=== PATIENT | male | born 1990 | race Caucasian/White ===

== ENCOUNTER 2019-10-16 23:01 | Emergency (ER) | payer BC, SELFPAY ==
[2019-10-16 23:02] VITALS: BP 120/73; PULSE 62; RESP 18; TEMP 36.8; O2SAT 96; BMI 22.9
--- NOTE | 2019-10-17 00:59 | ED.VIS.GEN ---
History of Present Illness Chief Complaint: Abscess Narrative: Patient is a 28-year-old male who presents with sores on top of his mouth. He has a history of tobacco use there is concern for cancer. The sores are painful. He first noticed them 2 days ago. He does have a history of inflammatory bowel disease. No fevers. No vomiting. No diarrhea. No abdominal pain. Past Medical History - Allergies and Home Meds Allergies/Adverse Reactions: Allergies Fish Containing Products Allergy (Verified 10/16/19 23:05) Other throat tightens, lips swell ciprofloxacin [From Cipro] Adverse Reaction (Verified 10/16/19 23:05) Pain in joints ciprofloxacin HCl [From Cipro] Adverse Reaction (Verified 10/16/19 23:05) Pain in joints Primary Care Physician: Indra Sheriff DO [Primary Care Provider] - Past Medical History: - - Inflammatory bowel disease Surgical History: no surgical history Smoking Status: Never smoker - Family History Maternal Family History: Reports: No pertinent history Review of Systems All systems negative except as indicated General: Denies: Fever ENT: Reports: - - Sores in mouth Cardiovascular: Denies: Chest pain Respiratory: Denies: Dyspnea Gastrointestinal: Denies: Nausea, Vomiting, Diarrhea Skin: Denies: Rash Neurological: Denies: Headache Physical Exam Vital Signs/Narrative: Vital Signs Temp Pulse Resp BP Pulse Ox 10/16/19 23:02 98.3 F 62 18 120/73 96 Inital Vital Signs reviewed: Yes General: Well nourished Head: Normocephalic Eyes: EOMI ENT: - - Aphthous ulcers noticed on the hard palate Neck: Supple Cardiovascular: Regular rate Respiratory: No distress Skin: Normal color Neurological: Alert Psychological: Normal affect Diagnostic/Tx/Re-eval - Medical Decision Making Patient has aphthous ulcers. He was reassured that this does not appear to be cancer but I did recommend follow-up with ENT, especially if his symptoms do not improve. He was given a prescription for Benadryl?Maalox?Xylocaine liquid. Understands to return for new or worsening symptoms and was discharged home. ED Disposition - Plan for ED Patient: Disposition: Home or Assisted Living Diagnosis: Aphthous ulcer Instructions: APHTHOUS ULCER, Canker Sore (Child) Prescriptions: Bmx Liquid 10 ml PO TID #180 ml Prescription Printed Referrals: Indra Sheriff DO [Primary Care Provider] - Tristin Gong MD [STAFF PHYSICIAN] -
[2019-10-17 01:06] VITALS: BP 118/70; PULSE 75; RESP 16; O2SAT 98
== END 2019-10-17 01:07 | disposition home or self-care (01) ==
PROVIDERS: Emergency Provider Emergency Medicine; Family Provider Family Medicine; PCP Family Medicine
DX: K12.0 Recurrent oral aphthae (principal); Z87.891 Personal history of nicotine dependence
CPT/HCPCS: 99282

== ENCOUNTER 2020-01-26 02:21 | Emergency (ER) | payer BC, SELFPAY ==
[2020-01-26 02:22] VITALS: BP 142/90; PULSE 76; RESP 18; TEMP 36.6; O2SAT 98; BMI 23.6
--- NOTE | 2020-01-26 02:31 | EKG12_ITS ---
Test Reason : SOB Blood Pressure : / mmHG Vent. Rate : 065 BPM Atrial Rate : 065 BPM P-R Int : 138 ms QRS Dur : 074 ms QT Int : 394 ms P-R-T Axes : 064 008 043 degrees QTc Int : 409 ms Normal sinus rhythm with sinus arrhythmia Normal ECG Confirmed by MARIA URBINA, MARIE ([id number]), film and video editor CRISTOPHER GARY ([id number]) on 01/27/2020 8:27:37 AM Referred By: ANAHI Confirmed By:MARIE SIFUENTES MD
[2020-01-26] MEDS: Ipratropium/Albuterol Sulfate 3 ML AMPUL.NEB INHALATION (02:47)
[2020-01-26 02:48] VITALS: PULSE 70; RESP 16
[2020-01-26 02:48] LABS: Absolute Lymphocyte Count 2.02 X10^3/uL (0.83-4.51); Absolute Neutrophil Count 11.2 X10^3/uL (2.0-7.7); Basophil# 0.02 X10^3/uL; Basophil% 0.1 % (0-1); Eosinophil# 0.01 X10^3/uL; Eosinophils% 0.1 % (0-5); Hematocrit 42.2 % (40-54); Hemoglobin 14.1 g/dL (13.0-16.5); Lymphocyte # 2.02 X10^3/ul (4.0); Lymphocyte % 14.1 % (19-41); Mean Corp Hgb Conc 33.4 g/dL (32-36); Mean Corpuscular Hgb 30.5 pg (27.0-32.0); Mean Corpuscular Volume 91.1 fL (80-94); Mean Platelet Vol. 10.9 fl (6.2-12.0); Monocyte# 1.01 X10^3/uL; NRBC Flagged by Analyzer 0 % (0-5); Neutrophil # 11.23 X10^3/uL (2.7-7.7); Neutrophil % 78.4 % (47-70); Platelet Count 301 K/mm3 (150-450); RBC Distribution Width CV 11.9 % (11.6-14.6); RBC Distribution Width SD 39.3 fl (35.1-43.9); Red Blood Count 4.63 M/mm3 (4.6-6.2); White Blood Count 14.3 K/mm3 (4.4-11.0)
[2020-01-26 03:36] LABS: D-Dimer Quantitative (DVT/PE) < 0.27 FEU/ug/m (0.27-0.49)
--- NOTE | 2020-01-26 03:37 | RAD_ITS ---
STUDY: X-RAY CHEST REASON FOR EXAM: Male, 29 years old. c/o sob x 3 days -- mid sternal cp starting yesterday -- hx of asthma TECHNIQUE: Frontal and lateral views of the chest. COMPARISON: 09/25/2014 FINDINGS: The lungs are clear and expanded. There is no demonstrated pleural abnormality. Normal size heart. Normal mediastinum and mariella. Normal visualized pulmonary arteries. Normal visualized aortic arch and descending thoracic aorta. Normal visualized thoracic spine. Normal visualized ribs, clavicles, and shoulders. There is no demonstrated abnormality of the visualized soft tissue structures of the upper abdomen. RAD/Chest PA and Lateral IMPRESSION: Normal x-ray examination of the chest. Electronically Signed: Nacho Richards MD at 3:55 EDT Tel , Service support ,
--- NOTE | 2020-01-26 03:37 | ED.DCSUM_ITS ---
- ER Visit Summary Date of Service: 01/26/20 Chief Complaint: [Shortness of breath and chest pain] History of Present Illness: The patient is a 29 M [[place]ent[place] to the emergency department with complaint of some shortness of breath over the last 5 days. Patient states that he felt like his asthma was acting up. Patient was seen by his primary care physician 2 days ago and started on Advair as well as prednisone. Over the last 8 hours he is developed pain in the center of his chest that sharp and worse with breathing. Patient also has a pressure sensation over the chest. He denies recent travel or surgery. He denies any exposure to novel coronavirus. Patient denies any fevers. He has no cough. De nies sore throat or headache. Has had no vomiting or diarrhea. Patient has history of asthma and history of ulcerative colitis.] Physical Examination: [HEENT-PERRLA, EOMI. Cranial nerves II through XII grossly intact. TMs clear. Mucous membranes moist. No adenopathy. Cardiovascular-regular rate and rhythm without murmur or ectopy Lungs-clear to auscultation, chest wall stable without crepitus or subcu emphysema Abdomen-normoactive bowel sounds, soft, nontender, no rebound or rigidity, no peritoneal signs. Extremities-intact ?4, normal range of motion, normal pulses, atraumatic] Test Results: [EKG obtained arrival shows sinus rhythm with a ventricular rate of 65 bpm with no acute segment changes. D-dimer was normal.] Chest x-ray obtained was normal. Emergency Department Course and Treatment: [Results discussed with patient. I had a long discussion with the patient. Patient believes some of his symptoms may be due to anxiety because he is been quite stressed over the coronavirus epidemic and the fact that he is got a history of colitis and asthma. At this time patient really not exhibiting a lot of signs or symptoms of coronavirus however I did explain to them that the symptoms can be minimal to asymptomatic. He is advised to self quarantine for 14 days.] He understands about the lack of testing at this time for minimally symptomatic patients. Treatment Plan: [Follow up with primary care physician 10 to 14 days. Patient will be given a prescription for Ativan as needed for anxiety.] Disposition: [Discharged home in stable condition.] Impression: [Dyspnea Chest pain-etiology uncertain Anxiety] This note was generated with Dragon dictation software. It may contain incorrect words, spelling, and punctuation that were not noted in review of the chart prior to signing ED Disposition - Plan for ED Patient: Referrals: Indra Sheriff DO [Primary Care Provider] -
[2020-01-26 03:50] LABS: Anion Gap 8 (5-15); BUN 18 mg/dL (7-18); BUN/Creat Ratio 15.4 RATIO (10-20); Calcium,Total 8.9 mg/dL (8.5-10.1); Chloride 103 mmol/L (98-107); Creatinine, Serum 1.17 mg/dL (0.70-1.30); EST Glomerular Filtration Rate 77 mL/min (>60); Est Glom Filt Rate - Afr Amer 93 mL/min (>60); Estimated Creatinine Clearance 94.46 ml/min; Glucose 103 mg/dL (74-106); Potassium 4.1 mmol/L (3.5-5.1); Sodium Level 137 mmol/L (136-145)
--- NOTE | 2020-01-26 04:06 | ED.DEP ---
ED Disposition - Plan for ED Patient: Instructions: ED Dyspnea, Panic Attack, CHEST PAIN, Uncertain Cause Prescriptions: Lorazepam [Ativan] 1 mg PO TID PRN #10 tab PRN Reason: Anxiety Prescription Printed Referrals: Indra Sheriff DO [Primary Care Provider] - 10-14 Days if not better
[2020-01-26 04:13] VITALS: BP 113/78; PULSE 70; RESP 16; O2SAT 98
== END 2020-01-26 04:14 | disposition home or self-care (01) ==
PROVIDERS: Emergency Provider Emergency Medicine; PCP Family Medicine
DX: R06.02 Shortness of breath (principal); R07.9 Chest pain, unspecified; F41.9 Anxiety disorder, unspecified
CPT/HCPCS: 71046; 80048; 84484; 85025; 85379; 93005; 94640; 99283; A4216

== ENCOUNTER → 2021-10-04 10:12 | Outpatient (CLI) | payer BC, SELFPAY ==
--- NOTE | 2021-10-04 10:17 | US_ITS ---
STUDY: SOFT TISSUE NECK ULTRASOUND REASON FOR EXAM: Male, 30 years old. Left submandibular region TECHNIQUE: Sonographic evaluation of the subcutaneous tissue in the submandibular region COMPARISON: None. FINDINGS: There are 2 separate submental lymph nodes noted corresponding to the palpable abnormalities. Larger measures 1.7 x 1.4 x 1.1 cm, smaller 1.6 x 1.6 x 0.7 cm. The smaller is physiologic while the larger may be reactive. Short-term follow-up is recommended to ensure resolution or stability. US/Head/Neck Soft Tissue IMPRESSION: Submental adenopathy as described Electronically Signed: Farshad Forbes MD at 14:19 EST , Service support ,
== END ==
LOC: US 10:15
PROVIDERS: PCP Family Medicine; Referring Provider Family Medicine; Visit Provider Family Medicine
DX: R59.0 Localized enlarged lymph nodes (principal)
CPT/HCPCS: 76536

== ENCOUNTER → 2023-12-19 | Outpatient (CLI) | payer BC, SELFPAY ==
--- OUTSIDE RECORDS SUMMARY | 2023-12-19 12:29 | XMS RPT_ITS | CCD ---
Author Name Unknown Address [address] [place] [address] Organization [facility] Care Team Providers Care Co Founder And President Name Role Phone Sveta Sheriff Unavailable Yanira Carlson Unavailable Unavailable Rafat Lea Unavailable Unavailable Simon Barrera Unavailable Sveta Sheriff DO Primary Care Provider Sveta Sheriff DO Primary Care Provider Ms. Rafat Lea Attending Dr. Sveta Acuña Primary Care Unavaila ble BEL TELLO Referring Unavailable SVETA SHERIFF Primary Care Unavailable BEL TELLO Attending Unavailable SVETA SHERIFF Primary Care Unavailable Allergies Allergy Classification Reported Allergen(s) Allergy Type Date of Onset Reaction(s) Facility Berries (2 sources) Miranda Food Allergy Anaphylaxis [facility] Fish (2 sources) Fish - dietary Food Allergy Anaphylaxis [facility] Quinolones (antibiotic) (2 sources) Ciprofloxacin Drug Allergy Swelling/Edema [facility] (2 sources) Miranda Anaphylaxis [facility] (2 sources) Ciprofloxacin Drug Allergy Swelling/Edema [facility] (2 sources) Fish - dietary Anaphylaxis [facility] (10 sources) Ciprofloxacin; Translations: [CIPROFLOXACIN] Drug Allergy 8 Swelling [facility] Medications Current Medications Medication Drug Class(es) Dates Sig (Normalized) Sig (Original) NONE (3 sources) NONE Quantity: 0 Refills: 0 Ordered: 25-Sep-2019 Bowling, Melanic Status: Other Generic Substitution Allowed triamcinolone acetonide 5 mg/ml topical cream (5 sources) Corticosteroid Start: 05-31-2021 triamcinolone 0.5% topical cream ; Apply topically to affected area 3 times a day Quantity: 30 Refills: 0 Ordered: 31-May-2021 Rafat Lea Start: 31-May-2021 Generic Substitution Allowed Comments: For external use only. Completed/Discontinued Medications Medication Drug Class(es) Dates Sig (Normalized) Sig (Original) balsalazide disodium 750 mg oral capsule (20 sources) Aminosalicylate Start: 12-04-2023 take 3 capsules by mouth twice daily balsalazide (COLAZAL) 750 mg capsule Indications: Ulcerative rectosigmoiditis with complication (HCC) take 3 capsules by mouth twice daily 180 capsule 0 12/04/2023 Active Problems Active Problems Problem Classification Problem Date Documented Da te Episodic/Chronic Allergic reactions (6 sources) Contact dermatitis; Translations: [Contact dermatitis and other eczema, unspecified cause] 05-19-2021 Episodic Past or Other Problems Problem Classification Problem Date Documented Da te Episodic/Chronic Inflammation; infection of eye (except that caused by tuberculosis or sexually transmitteddisease) (18 sources) Herpes zoster ophthalmicus; Translations: [Zoster ocular disease, unspecified] Onset: 05-05-2020 05-05-2020 Episodic Results Test Name Value Interpretation Reference Range Facil ity Vital Signs Date Time Vital Sign Value Performing Clinician Facility 12-20-2022 13:33-0500 Body height 177.8 cm Bel Tello MD Work Phone: [facility] 12-20-2022 13:33-0500 Body temperature 97.59 [degF] Bel Tello MD Work Phone: [facility] 12-20-2022 13:33-0500 Body weight 76.39 kg Bel Tello MD Work Phone: [facility] 12-20-2022 13:33-0500 Diastolic blood pressure 69 mm[Hg] Bel Tello MD Work Phone: [facility] 12-20-2022 13:33-0500 Heart rate 74 /min Bel Tello MD Work Phone: [facility] 12-20-2022 13:33-0500 SaO2% (BldA) [Mass fraction] 99 % Bel Tello MD Work Phone: [facility] 12-20-2022 13:33-0500 Systolic blood pressure 120 mm[Hg] Bel Tello MD Work Phone: [facility] 09-15-2021 16:06-0500 Body height 177.8 cm Sveta Sheriff Other Phone: [facility] 09-15-2021 16:06-0500 Body temperature 97.88 [degF] Sveta Sheriff Other Phone: [facility] 09-15-2021 16:06-0500 Diastolic blood pressure 63 mm[Hg] Sveta Sheriff Other Phone: [facility] 09-15-2021 16:06-0500 Heart rate 67 /min Sveta Sheriff Other Phone: [facility] 09-15-2021 16:06-0500 SaO2% (BldA) [Mass fraction] 97 % Sveta Sheriff Other Phone: [facility] 09-15-2021 16:06-0500 Systolic blood pressure 110 mm[Hg] Sveta Sheriff Other Phone: [facility] 08-03-2021 06:41-0400 Body height 177.8 cm Sveta Sheriff Other Phone: [facility] 08-03-2021 06:41-0400 Body temperature 97.52 [degF] Sveta Sheriff Other Phone: [facility] 08-03-2021 06:41-0400 Body weight 77.3 kg Sveta Sheriff Other Phone: [facility] 08-03-2021 06:41-0400 Diastolic blood pressure 89 mm[Hg] Sveta Sheriff Other Phone: [facility] 08-03-2021 06:41-0400 Heart rate 69 /min Sveta Sheriff Other Phone: [facility] 08-03-2021 06:41-0400 Respiratory rate 18 /min Sveta Sheriff Other Phone: [facility] 08-03-2021 06:41-0400 SaO2% (BldA) [Mass fraction] 99 % Sveta Sheriff Other Phone: [facility] 08-03-2021 06:41-0400 Systolic blood pressure 150 mm[Hg] Sveta Sheriff Other Phone: [facility] 05-31-2021 14:43-0400 Body height 177.8 cm Sveta Sheriff Other Phone: [facility] 05-31-2021 14:43-0400 Body temperature 97.16 [degF] Sveta Sheriff Other Phone: [facility] 05-31-2021 14:43-0400 Diastolic blood pressure 67 mm[Hg] vSeta Sheriff Other Phone: [facility] 05-31-2021 14:43-0400 Heart rate 65 /min Sveta Sheriff Other Phone: [facility] 05-31-2021 14:43-0400 SaO2% (BldA) [Mass fraction] 98 % Sveta Sheriff Other Phone: [facility] 05-31-2021 14:43-0400 Systolic blood pressure 106 mm[Hg] Sveta Sheriff Other Phone: [facility] 05-19-2021 12:07-0400 Body height 177.8 cm Sveta Sheriff Other Phone: [facility] 05-19-2021 12:07-0400 Body temperature 97.16 [degF] Sveta Sheriff Other Phone: [facility] 05-19-2021 12:07-0400 Diastolic blood pressure 67 mm[Hg] Sveta Sheriff Other Phone: [facility] 05-19-2021 12:07-0400 Heart rate 61 /min Sveta Sheriff Other Phone: [facility] 05-19-2021 12:07-0400 Respiratory rate 16 /min Sveta Sheriff Other Phone: [facility] 05-19-2021 12:07-0400 SaO2% (BldA) [Mass fraction] 99 % Sveta Sheriff Other Phone: [facility] 05-19-2021 12:07-0400 Systolic blood pressure 93 mm[Hg] Sveta Sheriff Other Phone: [facility] Encounters Encounter Date Encounter Type Care Provider Facility Start: 12-17-2023 Telephone encounter Bel larsen MD Work Phone: Gastroenterology Start: 12-14-2023 Telephone encounter Bel larsen MD Work Phone: Gastroenterology Plan of Treatment Date Care Activity Detail Author Start: 2048 Hepatitis B Vaccine (1 of 3 - Risk 3-dose series) Hepatitis B Vaccine (1 of 3 - Risk 3-dose series) [facility] Start: 2023 Lipid panel Lipid Screening [facility] Start: 11-05-2023 Depression Assessment Depression Ass essment [facility] Start: 07-06-2023 Covid-19 Vaccine ( season) Covid-19 Vaccine ( season) [facility] Start: 07-06-2023 Influenza vaccination C [facility] Start: 12-20-2022 End: 02-19-2023 BLOOD TB SCREEN [facility] Work Phone: Payers Date Payer Category Payer Unknown 2017 Unknown [id number] 1990 Unknown [id number] 1990 Unknown [id number] Self-pay [id number] Social History Date Type Detail Facility [facility] Tobacco smoking consumption unknown [facility] Start: 04-12-2018 Tobacco smoking stat us NHIS Never smoked tobacco [facility] Start: 04-12-2018 Tobacco use and exposure Smokeless tobacco non-user [facility] Start: 09-14-2021 Alcohol intake Current drinke r of alcohol (finding) [facility] Start: 09-14-2021 Alcohol Comment once a year [facility] Start: 1990 Sex Assigned At Male C [facility] Start: 10-11-2020 End: 09-14-2021 History of Social function [facility] Start: 10-11-2020 End: 09-14-2021 Tobacco use panel [facility] National Score (1-10 0), lower number is lower risk Not on file [facility] Start: 03-11-2020 Gender identity Identifies as male gender (finding) [facility] Start: 03-11-2020 Sexual orientation Heterosexual (fin ding) [facility] Note 12-17-2023 Telephone Encounter - Bernice Barajas RN - 12/17/2023 12:29 PM EST Note Date & Type Note Facility 12-17-2023 Miscellaneous Notes Formattin g of this note might be different from the original. Dr. Tello reviewed and signed pt's [facility] paperwork. Faxed back to [facility] at [phone], Pt advised. Bernice Barajas RN December 17, 2023 12:54 PM documented in this encounter [facility] Note 12-14-2023 Telephone Encounter - Bernice Barajas RN - 12/14/2023 11:23 AM ESTTelephone Encounter - Kevin Husain - 12/14/2023 9:34 AM EST Note Date & Type Note Facility 12-14-2023 Miscellaneous Notes Formattin g of this note might be different from the original. Called and spoke to pt and explained the office received his [facility] paperwork and Dr. Tello will be back in the office to review and sign it next week. Pt verbalized understanding. Bernice Barajas RN December 14, 2023 11:25 AM Patient called in requiring about FMLA paperwork. Paperwork is due by 12/20/23 Kevin Ingram [employer] Specialist latonya documented in this encounter [facility] Note 10-01-2023 Telephone Encounter - Bernice Barajas RN - 10/01/2023 8:50 AM EST Note Date & Type Note Facility 10-01-2023 Miscellaneous Notes Formattin g of this note is different from the original. Requested Prescriptions Pending Prescriptions Disp Refills balsalazide (COLAZAL) 750 mg capsule [Pharmacy Med Name: Balsalazide Disodium 750 MG Oral Capsule] 180 capsule 0 Sig: take 3 capsules by mouth twice daily Last Visit: 12/20/22 Last Lab: 12/20/22 Bernice Barajas RN October 01, 2023 8:51 AM\ documented in this encounter [facility] Note 07-13-2023 Telephone Encounter - Bernice Barajas RN - 07/13/2023 2:29 PM EDTTelephone Encounter - Cathi Bonilla - 06/08/2023 4:26 PM EDT Note Date & Type Note Facility 07-13-2023 Miscellaneous Notes Formattin g of this note might be different from the original. Called patient on his cell number but unable to leave a VM message. Called [phone] - mom (on his contact list) and left a message with her to have pt call this nurse regarding his FMLA paperwork. Mother states pt works 2nd shift and will call this office on 07/16/23. Bernice Barajas RN July 13, 2023 2:35 PM Received patient's FMLA fax and placed in Dr. Tello's folder. Cathi Bonilla documented in this encounter [facility] Note 04-30-2023 Telephone Encounter - Bernice Barajas RN - 04/30/2023 1:17 PM EDT Note Date & Type Note Facility 04-30-2023 Miscellaneous Notes Formattin g of this note is different from the original. Requested Prescriptions Pending Prescriptions Disp Refills mesalamine (CANASA) 1,000 mg suppository 30 Suppository 5 Si Suppository by RECTAL route daily at bedtime. Last Visit: 12/20/22 Impression and Plan: [facility] colitis - will check labs and stools, pred 20, continue colazal and canasa at current doses. Pt likely will benefit from a biologic Last Lab: 12/20/22 Bernice Barajas RN April 30, 2023 1:18 PM documented in this encounter [facility] Progress note 12-20-2022 Note Date & Type Note Facility 12-20-2022 Note HNO ID: [id number] Author: Bel Tello MD Service: ? Author Type: Physician Type: Progress Notes Filed: 12/20/2022 2:05 PM Note Text: Follow Up Visit: BP 120/69 Pulse 74 Temp 36.4 ?C (97.6 ?F) (Temporal) Ht 177.8 cm (5' 10 ) Wt 76.4 kg (168 lb 6.4 oz) SpO2 99% BMI 24.16 kg/m? Medications: Current Outpatient Medications Medication Sig balsalazide (COLAZAL) 750 mg capsule Take 3 capsules by mouth twice daily. mesalamine (CANASA) 1,000 mg suppository 1 Suppository by RECTAL route daily at bedtime. predniSONE (DELTASONE) 10 mg tablet Take 2 tablets by mouth once daily. (Patient not taking: Reported on 12/20/2022) mesalamine (CANASA) 1,000 mg suppository 1 Suppository by RECTAL route daily at bedtime. (Patient not taking: Reported on 12/20/2022) budesonide (UCERIS) 9 mg TaDE Take 1 tablet by mouth once daily. (Patient not taking: Reported on 12/20/2022) mesalamine (CANASA) 1,000 mg suppository 1 Suppository by RECTAL route once daily. (Patient not taking: No sig reported) Olopatadine (PATADAY) 0.2 % drop Use 1 Drop in the left eye once daily. (Patient not taking: No sig reported) budesonide-formoterol (SYMBICORT) 160-4.5 mcg/actuation inhaler Inhale 2 Puffs as instructed twice daily. (Patient not taking: Reported on 12/20/2022) budesonide (UCERIS) 9 mg TaDE Take 1 tablet by mouth once daily. (Patient not taking: No sig reported) balsalazide (COLAZAL) 750 mg capsule Take 3 capsules by mouth twice daily. (Patient not taking: No sig reported) balsalazide (COLAZAL) 750 mg capsule Take 3 capsules by mouth three times daily. TAKE THREE(3) TABLET THREE TIMES DAILY. (Patient not taking: No sig reported) No current facility-administered medications for this visit. Subjective: This 32 year old male patient [facility] proctos[facility]. On colazal and Canasa. Now - 6 bm daily, bleeidng with eveery bm. Wt stable, no abd pain or fevers. Flare for several months. No help with pred in the past. Last colonoscopy 2020 - ?results. No longer on iron, but anemic in the past. Never on a biologic. Physical Examination: General Appearance: alert, oriented x 3, pleasant and in no acute distress Heart: regular rate and rhythm, no murmurs or gallops Lungs: breath sounds clear to auscultation bilaterally, no crackles, rhonchi, or wheezes Abdomen: not distended, normal bowel sounds, soft and depressible, no guarding or rebound no palpable mass no organomegaly Extremities: no cyanosis or edema CBC: @LASTLABX(WBC:2,HB,MCV,PLT,neut,lymphp])@ CMP: Alkaline Phosphatase (U/L) Date Value 08/14/2018 99 AST (U/L) Date Value 08/14/2018 28 ALT (U/L) Date Value 08/14/2018 12 Bilirubin, Total (mg/dL) Date Value 08/14/2018 0.5 Glucose (mg/dL) Date Value 08/14/2018 84 BUN (mg/dL) Date Value 08/14/2018 14 Creatinine (mg/dL) Date Value 08/14/2018 1.16 Sodium (mmol/L) Date Value 08/14/2018 139 Chloride (mmol/L) Date Value 08/14/2018 100 CO2 (mmol/L) Date Value 08/14/2018 26 Protein, Total (g/dL) Date Value 08/14/2018 8.3 (H) Albumin (g/dL) Date Value 08/14/2018 4.7 Calcium (mg/dL) Date Value 08/14/2018 9.7 TSH: No results found for: TSH Impression and Plan: [facility] colitis - will check labs and stools, pred 20, continue colazal and canasa at current doses. Pt likely will benefit from a biologic. PATIENT IS OK TO BE CONTACTED BY IBD GI RESEARCH TEAM TO EXPLORE PARTICIPATION IN RESEARCH STUDIES yes I have confirmed and edited as necessary PFSH and ROS obtained by others. Bel Tello MD Date: December 20, 2022 [facility] History of Present illness Narrative 12-20-2022 Bel Tello MD - 12/20/2022 1:53 PM EST Note Date & Type Note Facility 12-20-2022 History of Presen t illness Narrative Follow Up Visit: BP 120/69 Pulse 74 Temp 36.4 C (97.6 F) (Temporal) Ht 177.8 cm (5' 10 ) Wt 76.4 kg (168 lb 6.4 oz) SpO2 99% BMI 24.16 kg/m Medications: Current Outpatient Medications Medication Sig balsalazide (COLAZAL) 750 mg capsule Take 3 capsules by mouth twice daily. mesalamine (CANASA) 1,000 mg suppository 1 Suppository by RECTAL route daily at bedtime. predniSONE (DELTASONE) 10 mg tablet Take 2 tablets by mouth once daily. (Patient not taking: Reported on 12/20/2022) mesalamine (CANASA) 1,000 mg suppository 1 Suppository by RECTAL route daily at bedtime. (Patient not taking: Reported on 12/20/2022) budesonide (UCERIS) 9 mg TaDE Take 1 tablet by mouth once daily. (Patient not taking: Reported on 12/20/2022) mesalamine (CANASA) 1,000 mg suppository 1 Suppository by RECTAL route once daily. (Patient not taking: No sig reported) Olopatadine (PATADAY) 0.2 % drop Use 1 Drop in the left eye once daily. (Patient not taking: No sig reported) budesonide-formoterol (SYMBICORT) 160-4.5 mcg/actuation inhaler Inhale 2 Puffs as instructed twice daily. (Patient not taking: Reported on 12/20/2022) budesonide (UCERIS) 9 mg TaDE Take 1 tablet by mouth once daily. (Patient not taking: No sig reported) balsalazide (COLAZAL) 750 mg capsule Take 3 capsules by mouth twice daily. (Patient not taking: No sig reported) balsalazide (COLAZAL) 750 mg capsule Take 3 capsules by mouth three times daily. TAKE THREE(3) TABLET THREE TIMES DAILY. (Patient not taking: No sig reported) No current facility-administered medications for this visit. Subjective: This 32 year old male patient [facility] proctosigmoditis. On colazal and Canasa. Now - 6 bm daily, bleeidng with eveery bm. Wt stable, no abd pain or fevers. Flare for several months. No help with pred in the past. Last colonoscopy 2020 - ?results. No longer on iron, but anemic in the past. Never on a biologic. Physical Examination: General Appearance: alert, oriented x 3, pleasant and in no acute distress Heart: regular rate and rhythm, no murmurs or gallops Lungs: breath sounds clear to auscultation bilaterally, no crackles, rhonchi, or wheezes Abdomen: not distended, normal bowel sounds, soft and depressible, no guarding or rebound no palpable mass no organomegaly Extremities: no cyanosis or edema CBC: @LASTLABX(WBC:2,HB,MCV,PLT,neut,lymp hp])@ CMP: Alkaline Phosphatase (U/L) Date Value 08/14/2018 99 AST (U/L) Date Value 08/14/2018 28 ALT (U/L) Date Value 08/14/2018 12 Bilirubin, Total (mg/dL) Date Value 08/14/2018 0.5 Glucose (mg/dL) Date Value 08/14/2018 84 BUN (mg/dL) Date Value 08/14/2018 14 Creatinine (mg/dL) Date Value 08/14/2018 1.16 Sodium (mmol/L) Date Value 08/14/2018 139 Chloride (mmol/L) Date Value 08/14/2018 100 CO2 (mmol/L) Date Value 08/14/2018 26 Protein, Total (g/dL) Date Value 08/14/2018 8.3 (H) Albumin (g/dL) Date Value 08/14/2018 4.7 Calcium (mg/dL) Date Value 08/14/2018 9.7 TSH: No results found for: TSH Impression and Plan: [facility] colitis - will check labs and stools, pred 20, continue colazal and canasa at current doses. Pt likely will benefit from a biologic. PATIENT IS OK TO BE CONTACTED BY IBD GI RESEARCH TEAM TO EXPLORE PARTICIPATION IN RESEARCH STUDIES yes I have confirmed and edited as necessary PFSH and ROS obtained by others. Bel Tello MD Date: December 20, 2022 documented in this encounter [facility] Note 10-31-2022 Telephone Encounter - Sharon GARCIAAlbert - 10/31/2022 8:40 AM EST Note Date & Type Note Facility 10-31-2022 Miscellaneous Notes Formattin g of this note might be different from the original. Patient is having a crohn's flare is requesting a refill of Prednisone be sent to his local [facility]. Pt# [phone] Done. Prednisone 20mg daily. Please ask him to send me a [employer] message in 2 weeks. Thanks. Bel Tello MD documented in this encounter [facility] Note 09-11-2022 Telephone Encounter - Bernice Barajas RN - 09/11/2022 9:43 AM EST Note Date & Type Note Facility 09-11-2022 Miscellaneous Notes Formattin g of this note is different from the original. Requested Prescriptions Pending Prescriptions Disp Refills balsalazide (COLAZAL) 750 mg capsule 540 capsule 5 Sig: Take 3 capsules by mouth twice daily. mesalamine (CANASA) 1,000 mg suppository 30 Suppository 5 Si Suppository by RECTAL route daily at bedtime. Last Visit: 09/14/21 Last Lab: 2017 Bernice Barajas RN September 11, 2022 9:44 AM documented in this encounter [facility] Evaluation note Note Date & Type Note Facility documented in this encounter [facility] Summary Purpose Family History No Family History Records FoundNo Family History Records FoundNo Family History Records FoundNo Family History Records Found Advance Directives No Advanced Directives Records FoundNo Advanced Directives Records FoundNo Advanced Directives Records FoundNo Advanced Directives Records Found Additional Source Comments (unrecognized sect ion and content) No Status Records FoundNo Status Records FoundNo Status Records FoundNo Status Records Found INFORMATION SOURCE (unrecogn ized section and content) DATE CREATED AUTHOR AUTHOR'S ORGANIZ ATION 03/26/2019 [facility] DATE CREATED AUTHOR AUTHOR'S ORGANIZ ATION 02/08/2023 [facility] DATE CREATED AUTHOR AUTHOR'S ORGANIZ ATION 12/14/2023 [facility] <item><item><item><item> Privacy Markings (unrecogniz ed section and content) Section Author: Carissa Mcfarland PROHIBITION ON REDISCLOSURE OF CONFIDENTIAL INFORMATION This notice accompanies a disclosure of information concerning a client made to you with the consent of such client. Section Author: Carissa Mcfarland PROHIBITION ON REDISCLOSURE OF CONFIDENTIAL INFORMATION This notice accompanies a disclosure of information concerning a client made to you with the consent of such client. Section Author: Carissa Mcfarland PROHIBITION ON REDISCLOSURE OF CONFIDENTIAL INFORMATION This notice accompanies a disclosure of information concerning a client made to you with the consent of such client. Section Author: Carissa Mcfarland PROHIBITION ON REDISCLOSURE OF CONFIDENTIAL INFORMATION This notice accompanies a disclosure of information concerning a client made to you with the consent of such client. Source Comments (unrecognize d section and content) In the event this informatio n is protected by the Federal Confidentiality of Alcohol and Drug Abuse Patient Records regulations: The Federal rules restrict any use of the information to criminally investigate or prosecute any alcohol or drug abuse patient.[facility] the event this information is protected by the Federal Confidentiality of Alcohol and Drug Abuse Patient Records regulations: The Federal rules restrict any use of the information to criminally investigate or prosecute any alcohol or drug abuse patient.[facility] the event this information is protected by the Federal Confidentiality of Alcohol and Drug Abuse Patient Records regulations: The Federal rules restrict any use of the information to criminally investigate or prosecute any alcohol or drug abuse patient.[facility] the event this information is protected by the Federal Confidentiality of Alcohol and Drug Abuse Patient Records regulations: The Federal rules restrict any use of the information to criminally investigate or prosecute any alcohol or drug abuse patient.[facility] the event this information is protected by the Federal Confidentiality of Alcohol and Drug Abuse Patient Records regulations: The Federal rules restrict any use of the information to criminally investigate or prosecute any alcohol or drug abuse patient.[facility] the event this information is protected by the Federal Confidentiality of Alcohol and Drug Abuse Patient Records regulations: The Federal rules restrict any use of the information to criminally investigate or prosecute any alcohol or drug abuse patient.[facility] the event this information is protected by the Federal Confidentiality of Alcohol and Drug Abuse Patient Records regulations: The Federal rules restrict any use of the information to criminally investigate or prosecute any alcohol or drug abuse patient.[facility] the event this information is protected by the Federal Confidentiality of Alcohol and Drug Abuse Patient Records regulations: The Federal rules restrict any use of the information to criminally investigate or prosecute any alcohol or drug abuse patient.[facility] the event this information is protected by the Federal Confidentiality of Alcohol and Drug Abuse Patient Records regulations: The Federal rules restrict any use of the information to criminally investigate or prosecute any alcohol or drug abuse patient.[facility] Reason for Visit (unrecogniz ed section and content) Reason Comments Patient Question Reason Comments Established Patient Colitis flare up Reason Onset Date Comments Refill Request 04/28/2023 Reason Comments FMLA paper work Reason Comments Refill Request Reason Comments Patient Update FMLA paperwork Returning Patient's Call Care Teams (unrecognized sec tion and content) Co Founder And President Relationship Specialty Start Date End Date Sveta Sheriff DO [address] [place] [address] PCP - General Family Medicine 05/05/20 Co Founder And President Relationship Specialty Start Date End Date Sveta Sheriff DO [address] [place], [place] [id number] PCP - General Family Medicine 05/05/20 Co Founder And President Relationship Specialty Start Date End Date Sveta Sheriff DO [address] [place], [place] [id number] PCP - General Family Medicine 05/05/20 Co Founder And President Relationship Specialty Start Date End Date Sveta Sheriff DO [address] [place] [address] PCP - General Family Medicine 05/05/20 Co Founder And President Relationship Specialty Start Date End Date Sveta Sheriff DO [address] [place] [address] PCP - General Family Medicine 05/05/20 Co Founder And President Relationship Specialty Start Date End Date Sveta Sheriff DO [address] [place] [address] PCP - General Family Medicine 05/05/20 Co Founder And President Relationship Specialty Start Date End Date Sveta Sheriff DO [address] [place] [address] (work) PCP - General Family Medicine 05/05/20 FOR RECORDS PERTAINING TO PATIENTS WHO ARE OR HAVE BEEN ENROLLED IN A CHEMICAL DEPENDENCY/SUBSTANCEABUSE PROGRAM, SOME INFORMATION MAY BE OMITTED. This clinical summary was aggregated from multiple sources. Caution should be exercised in using it in the provision of clinical care. This summary normalizes information from multiple sources, and as a consequence, information in this document may materially change the coding, format and clinical context of patient data. In addition, data may be omitted in some cases. CLINICAL DECISIONS SHOULD BE BASED ON THE PRIMARY CLINICAL RECORDS. [facility]. provides no warranty or guarantee of the accuracy or completeness of information in this document.
[2023-12-19 13:20] LABS: Absolute Lymphocyte Count 1.23 X10^3/uL (0.83-4.51); Absolute Neutrophil Count 5.2 X10^3/uL (2.0-7.7); Basophil# 0.06 X10^3/uL; Basophil% 0.8 % (0-1); Eosinophil# 0.71 X10^3/uL; Eosinophils% 8.9 % (0-5); Erythrocyte Sedimentation Rate 22 mm/hr (0-20); Hematocrit 34.2 % (40-54); Hemoglobin 10.4 g/dL (13.0-16.5); Lymphocyte # 1.23 X10^3/ul (0.83-4.51); Lymphocyte % 15.5 % (19-41); Mean Corp Hgb Conc 30.4 g/dL (32-36); Mean Corpuscular Hgb 24.7 pg (27.0-32.0); Mean Corpuscular Volume 81.2 fL (80-94); Mean Platelet Vol. 11.6 fl (6.2-12.0); Monocyte# 0.68 X10^3/uL; Monocyte% 8.6 % (0-10); NRBC Flagged by Analyzer 0 % (0-5); Neutrophil # 5.24 X10^3/uL (2.7-7.7); Neutrophil % 65.9 % (47-70); Platelet Count 374 K/mm3 (150-450); RBC Distribution Width CV 16.7 % (11.6-14.6); RBC Distribution Width SD 49.1 fl (35.1-43.9); Red Blood Count 4.21 M/mm3 (4.6-6.2); White Blood Count 7.9 K/mm3 (4.4-11.0)
[2023-12-19 13:41] LABS: CRP 9.46 mg/L (0.0-3.0)
[2023-12-19 14:10] LABS: HIV - WCH Non-Reactive (Nonreactive); Syphilis Antibodies Non-reactive
== END | disposition home or self-care (01) ==
LOC: LAB 12:19
PROVIDERS: PCP Family Medicine; Referring Provider Nurse Practitioner Family; Visit Provider Nurse Practitioner Family
DX: Z20.9 Contact with and (suspected) exposure to unspecified communicable disease (principal); R59.9 Enlarged lymph nodes, unspecified
CPT/HCPCS: 36415; 85025; 85652; 86140; 86703; 86780; 87491; 87591

== ENCOUNTER → 2023-12-25 | Outpatient (CLI) | payer BC, SELFPAY ==
--- NOTE | 2023-12-25 14:47 | US_ITS ---
STUDY: SUPERFICIAL ULTRASOUND - BILATERAL GROINS. REASON FOR EXAM: Male, 33 years old. PERSISTENT ENLARGED NODES BILAT GROIN 10+YRS TECHNIQUE: A superficial ultrasound was performed with real-time and static walters-scale imaging. COMPARISON: None. FINDINGS: Imaging of the right and left groins with ultrasound was performed. There are 3 benign-appearing lymph nodes in the right groin. The largest measures 1.8 cm x 1.2 cm x 0.4 cm. There are 4 benign-appearing lymph nodes in the left groin. The largest measures 1.4 cm x 1.2 cm x 0.5 cm. US/Ext Non Vasc Limited/Soft Tiss IMPRESSION: Findings suggest some benign-appearing bilateral lymph nodes as described. Electronically Signed: Angel Shelton MD at 15:29 EST ,
--- OUTSIDE RECORDS SUMMARY | 2023-12-25 19:57 | XMS RPT_ITS | CCD ---
Author Name Unknown Address [address] [place] [address] Organization [facility] Care Team Providers Care Culinary Intern Name Role Phone Sveta Sheriff Unavailable Yanira [...] Berries (2 sources) Miranda Food Allergy Anaphylaxis [facility] Fish (2 sources) Fish - dietary Food Allergy Anaphylaxis [facility] Quinolones (antibiotic) (2 sources) Ciprofloxacin Drug Allergy Swelling/Edema [facility] (2 sources) Miranda Anaphylaxis [facility] (2 sources) Ciprofloxacin Drug Allergy Swelling/Edema [facility] (2 sources) Fish - dietary Anaphylaxis [facility] (10 sources) Ciprofloxacin; Translations: [CIPROFLOXACIN] Drug Allergy 8 Swelling [facility] Medications Current Medications Medication Drug Class(es) Dates [...] 177.8 cm Bel Tello MD Work Phone: [facility] 12-20-2022 13:33-0500 Body temperature 97.59 [degF] Bel Tello MD Work Phone: [facility] 12-20-2022 13:33-0500 Body weight 76.39 kg Bel Tello MD Work Phone: [facility] 12-20-2022 13:33-0500 Diastolic blood pressure 69 mm[Hg] Bel Tello MD Work Phone: [facility] 12-20-2022 13:33-0500 Heart rate 74 /min Bel Tello MD Work Phone: [facility] 12-20-2022 13:33-0500 SaO2% (BldA) [Mass fraction] 99 % Bel Tello MD Work Phone: [facility] 12-20-2022 13:33-0500 Systolic blood pressure 120 mm[Hg] Bel Tello MD Work Phone: [facility] 09-15-2021 16:06-0500 Body height 177.8 cm Sveta Sheriff Other Phone: [facility] 09-15-2021 16:06-0500 Body temperature 97.88 [degF] Sveta Sheriff Other Phone: [facility] 09-15-2021 16:06-0500 Diastolic blood pressure 63 mm[Hg] Sveta Sheriff Other Phone: [facility] 09-15-2021 16:06-0500 Heart rate 67 /min Sveta Sheriff Other Phone: [facility] 09-15-2021 16:06-0500 SaO2% (BldA) [Mass fraction] 97 % Sveta Sheriff Other Phone: [facility] 09-15-2021 16:06-0500 Systolic blood pressure 110 mm[Hg] Sveta Sheriff Other Phone: [facility] 08-03-2021 06:41-0400 Body height 177.8 cm Sveta Sheriff Other Phone: [facility] 08-03-2021 06:41-0400 Body temperature 97.52 [degF] Sveta Sheriff Other Phone: [facility] 08-03-2021 06:41-0400 Body weight 77.3 kg Sveta Sheriff Other Phone: [facility] 08-03-2021 06:41-0400 Diastolic blood pressure 89 mm[Hg] Sveta Sheriff Other Phone: [facility] 08-03-2021 06:41-0400 Heart rate 69 /min Sveta Sheriff Other Phone: [facility] 08-03-2021 06:41-0400 Respiratory rate 18 /min Sveta Sheriff Other Phone: [facility] 08-03-2021 06:41-0400 SaO2% (BldA) [Mass fraction] 99 % Sveta Sheriff Other Phone: [facility] 08-03-2021 06:41-0400 Systolic blood pressure 150 mm[Hg] Sveta Sheriff Other Phone: [facility] 05-31-2021 14:43-0400 Body height 177.8 cm Sveta Sheriff Other Phone: [facility] 05-31-2021 14:43-0400 Body temperature 97.16 [degF] Sveta Sheriff Other Phone: [facility] 05-31-2021 14:43-0400 Diastolic blood pressure 67 mm[Hg] Sveta Sheriff Other Phone: [facility] 05-31-2021 14:43-0400 Heart rate 65 /min Sveta Sheriff Other Phone: [facility] 05-31-2021 14:43-0400 SaO2% (BldA) [Mass fraction] 98 % Sveta Sheriff Other Phone: [facility] 05-31-2021 14:43-0400 Systolic blood pressure 106 mm[Hg] Sveta Sheriff Other Phone: [facility] 05-19-2021 12:07-0400 Body height 177.8 cm Sveta Sheriff Other Phone: [facility] 05-19-2021 12:07-0400 Body temperature 97.16 [degF] Sveta Sheriff Other Phone: [facility] 05-19-2021 12:07-0400 Diastolic blood pressure 67 mm[Hg] Sveta Sheriff Other Phone: [facility] 05-19-2021 12:07-0400 Heart rate 61 /min Sveta Sheriff Other Phone: [facility] 05-19-2021 12:07-0400 Respiratory rate 16 /min Sveta Sheriff Other Phone: [facility] 05-19-2021 12:07-0400 SaO2% (BldA) [Mass fraction] 99 % Sveta Sheriff Other Phone: [facility] 05-19-2021 12:07-0400 Systolic blood pressure 93 mm[Hg] Sveta Sheriff Other Phone: [facility] Encounters Encounter Date Encounter Type Care Provider Facility Start: 12-17-2023 Telephone encounter Bel larsen MD Work Phone: Gastroenterology Start: 12-14-2023 Telephone encounter Bel larsen MD Work Phone: Gastroenterology Plan of Treatment Date Care Activity Detail Author Start: 2048 Hepatitis B Vaccine (1 of 3 - Risk 3-dose series) Hepatitis B Vaccine (1 of 3 - Risk 3-dose series) [facility] Start: 2023 Lipid panel Lipid Screening [facility] Start: 11-05-2023 Depression Assessment Depression Ass essment [facility] Start: 07-06-2023 Covid-19 Vaccine ( season) Covid-19 Vaccine ( season) [facility] Start: 07-06-2023 Influenza vaccination [facility] Start: 12-20-2022 End: 02-19-2023 BLOOD TB SCREEN [facility] Work Phone: Payers Date Payer Category Payer Unknown 2017 Unknown [id number] 1990 Unknown [id number] 1990 Unknown [id number] Self-pay [id number] Social History Date Type Detail Facility [facility] Tobacco smoking consumption unknown [facility] Start: 04-12-2018 Tobacco smoking stat us NHIS Never smoked tobacco [facility] Start: 04-12-2018 Tobacco use and exposure Smokeless tobacco non-user [facility] Start: 09-14-2021 Alcohol intake Current drinke r of alcohol (finding) [facility] Start: 09-14-2021 Alcohol Comment once a year [facility] Start: 1990 Sex Assigned At Male [facility] Start: 10-11-2020 End: 09-14-2021 History of Social function [facility] Start: 10-11-2020 End: 09-14-2021 Tobacco use panel [facility] National Score (1-10 0), lower number is lower risk Not on file [facility] Start: 03-11-2020 Gender identity Identifies as male gender (finding) [facility] Start: 03-11-2020 Sexual orientation Heterosexual (fin ding) [facility] Note 12-17-2023 Telephone Encounter - Bernice Barajas RN - 12/17/2023 12:29 PM EST Note Date & Type Note Facility 12-17-2023 Miscellaneous Notes Formattin g of this note might be different from the original. Dr. Tello reviewed and signed pt's [facility] paperwork. Faxed back to [facility] at [phone], Pt advised. Bernice Barajas RN December 17, 2023 12:54 PM documented in this encounter [facility] Note 12-14-2023 Telephone Encounter - Bernice Barajas RN - 12/14/2023 11:23 AM ESTTelephone Encounter - Kevin Husain - 12/14/2023 9:34 AM EST Note Date & Type Note Facility 12-14-2023 Miscellaneous Notes Formattin g of this note might be different from the original. Called and spoke to pt and explained the office received his [facility] paperwork and Dr. Tello will be back in the office to review and sign it next week. Pt verbalized understanding. Bernice Barajas RN December 14, 2023 11:25 AM Patient called in requiring about FMLA paperwork. Paperwork is due by 12/20/23 Kevin Ingram [employer] latonya documented in this encounter [facility] Note 10-01-2023 Telephone Encounter - Bernice Barajas [...] 2023 8:51 AM\ documented in this encounter [facility] Note 07-13-2023 Telephone Encounter - Bernice Barajas RN - 07/13/2023 2:29 PM EDTTelephone Encounter - Cathi Bonilla - 06/08/2023 4:26 PM EDT Note Date & Type Note Facility 07-13-2023 Miscellaneous Notes Formattin g of this note might be different from the original. Called patient on his cell number but unable to leave a VM message. Called [phone] - mom (on his contact list) and left a message with her to have pt call this nurse regarding his FMLA paperwork. Mother states pt works 2nd shift and will call this office on 07/16/23. Bernice Barajas RN July 13, 2023 2:35 PM Received patient's FMLA fax and placed in Dr. Tello's folder. Cathi Bonilla documented in this encounter [facility] Note 04-30-2023 Telephone Encounter - Bernice Barajas RN - 04/30/2023 1:17 PM EDT Note Date & Type Note Facility 04-30-2023 Miscellaneous Notes Formattin g of this note is different from the original. Requested Prescriptions Pending Prescriptions Disp Refills mesalamine (CANASA) 1,000 mg suppository 30 Suppository 5 Si Suppository by RECTAL route daily at bedtime. Last Visit: 12/20/22 Impression and Plan: [facility] colitis - will check labs and stools, pred 20, continue colazal and canasa at current doses. Pt likely will benefit from a biologic Last Lab: 12/20/22 Bernice Barajas RN April 30, 2023 1:18 PM documented in this encounter [facility] Progress note 12-20-2022 Note Date & Type Note Facility 12-20-2022 Note HNO ID: [id number] Author: Bel Tello MD Service: ? Author [...] Subjective: This 32 year old male patient [facility] proctosigmoditis. On colazal and Canasa. Now [...] results found for: TSH Impression and Plan: [facility] colitis - will check labs and stools, pred 20, continue colazal and canasa at current doses. Pt likely will benefit from a biologic. PATIENT IS OK TO BE CONTACTED BY IBD GI RESEARCH TEAM TO EXPLORE PARTICIPATION IN RESEARCH STUDIES yes I have confirmed and edited as necessary PFSH and ROS obtained by others. Bel Tello MD Date: December 20, 2022 [facility] History of Present illness Narrative 12-20-2022 Bel [...] Subjective: This 32 year old male patient [facility] proctosigmoditis. On colazal and Canasa. Now [...] results found for: TSH Impression and Plan: [facility] colitis - will check labs and [...] December 20, 2022 documented in this encounter [facility] Note 10-31-2022 Telephone Encounter - Sharon GARCIAAlbert - 10/31/2022 8:40 AM EST Note Date & Type Note Facility 10-31-2022 Miscellaneous Notes Formattin g of this note might be different from the original. Patient is having a crohn's flare is requesting a refill of Prednisone be sent to his local [facility]. Pt# [phone] Done. Prednisone 20mg daily. Please ask him to send me a 1SDK message in 2 weeks. Thanks. Bel Tello MD documented in this encounter [facility] Note 09-11-2022 Telephone Encounter - Bernice [...] 2022 9:44 AM documented in this encounter [facility] Evaluation note Note Date & Type Note Facility documented in this encounter [facility] Summary Purpose Family History No Family History [...] DATE CREATED AUTHOR AUTHOR'S ORGANIZ ATION 03/26/2019 [facility] DATE CREATED AUTHOR AUTHOR'S ORGANIZ ATION 02/08/2023 [facility] DATE CREATED AUTHOR AUTHOR'S ORGANIZ ATION 12/14/2023 [facility] <item><item><item><item> Privacy Markings (unrecogniz ed section and [...] or prosecute any alcohol or drug abuse patient.[facility] the event this information is protected by the Federal Confidentiality of Alcohol and Drug Abuse Patient Records regulations: The Federal rules restrict any use of the information to criminally investigate or prosecute any alcohol or drug abuse patient.[facility] the event this information is protected by the Federal Confidentiality of Alcohol and Drug Abuse Patient Records regulations: The Federal rules restrict any use of the information to criminally investigate or prosecute any alcohol or drug abuse patient.[facility] the event this information is protected by the Federal Confidentiality of Alcohol and Drug Abuse Patient Records regulations: The Federal rules restrict any use of the information to criminally investigate or prosecute any alcohol or drug abuse patient.[facility] the event this information is protected by the Federal Confidentiality of Alcohol and Drug Abuse Patient Records regulations: The Federal rules restrict any use of the information to criminally investigate or prosecute any alcohol or drug abuse patient.[facility] the event this information is protected by the Federal Confidentiality of Alcohol and Drug Abuse Patient Records regulations: The Federal rules restrict any use of the information to criminally investigate or prosecute any alcohol or drug abuse patient.[facility] the event this information is protected by the Federal Confidentiality of Alcohol and Drug Abuse Patient Records regulations: The Federal rules restrict any use of the information to criminally investigate or prosecute any alcohol or drug abuse patient.[facility] the event this information is protected by the Federal Confidentiality of Alcohol and Drug Abuse Patient Records regulations: The Federal rules restrict any use of the information to criminally investigate or prosecute any alcohol or drug abuse patient.[facility] the event this information is protected by the Federal Confidentiality of Alcohol and Drug Abuse Patient Records regulations: The Federal rules restrict any use of the information to criminally investigate or prosecute any alcohol or drug abuse patient.[facility] Reason for Visit (unrecogniz ed section and content) Reason Comments Patient Question Reason Comments Established Patient Colitis flare up Reason Onset Date Comments Refill Request 04/28/2023 Reason Comments FMLA paper work Reason Comments Refill Request Reason Comments Patient Update FMLA paperwork Returning Patient's Call Care Teams (unrecognized sec tion and content) Culinary Intern Relationship Specialty Start Date End Date Sveta Sheriff DO [address] [place] [address] PCP - General Family Medicine 05/05/20 Culinary Intern Relationship Specialty Start Date End Date Sveta Sheriff DO [address] [place], [place] [address] PCP - General Family Medicine 05/05/20 Culinary Intern Relationship Specialty Start Date End Date Sveta Sheriff DO [address] [place], [place] [id number] PCP - General Family Medicine 05/05/20 Culinary Intern Relationship Specialty Start Date End Date Sveta Sheriff DO [address] [place] [address] PCP - General Family Medicine 05/05/20 Culinary Intern Relationship Specialty Start Date End Date Sveta Sheriff DO [address] [place] [address] PCP - General Family Medicine 05/05/20 Culinary Intern Relationship Specialty Start Date End Date Sveta Sheriff DO [address] [place] [address] PCP - General Family Medicine 05/05/20 Culinary Intern Relationship Specialty Start Date End Date Sveta Sheriff DO [address] [place] [address] (work) PCP - General Family Medicine 05/05/20 [...] BE BASED ON THE PRIMARY CLINICAL RECORDS. [facility]. provides no warranty or guarantee of the accuracy or completeness of information in this document.
== END | disposition home or self-care (01) ==
PROVIDERS: PCP Family Medicine; Referring Provider Nurse Practitioner Family; Visit Provider Nurse Practitioner Family
DX: R59.9 Enlarged lymph nodes, unspecified (principal)
CPT/HCPCS: 76882